=== PATIENT | male | born 1990 | race Two or more races ===

== ENCOUNTER 2019-12-03 13:30 | Inpatient (IN) | payer MEDICAID ==
[~2019-12-03] VITALS: Ht 167.6 cm; Wt 137.5 kg
[2019-12-03] MEDS ORDERED: QUEtiapine FUMARATE 100 MG TABLET PO ONE ×2 (14:30→15:15)
[2019-12-03 15:06] LABS: BASOPHILS % (AUTO) 0.4 % (0.0-2.0); EOSINOPHILS % (AUTO) 0.2 % (1.0-6.0); HEMATOCRIT 47.8 % (41-53); HEMOGLOBIN 16.4 g/dL (13.5-17.5); LYMPHOCYTES # (AUTO) 2.9 K/uL (1.0-4.8); LYMPHOCYTES % (AUTO) 14.6 % (22.0-44.0); MEAN CORPUSCULAR HEMOGLOBIN 29.3 pg (26.0-34.0); MEAN CORPUSCULAR HGB CONC 34.3 G/dL (31.0-37.0); MEAN CORPUSCULAR VOLUME 86 fL (80-100); MONOCYTES # (AUTO) 1.9 K/uL (0.1-1.0); MONOCYTES % (AUTO) 9.4 % (2.0-9.0); NEUTROPHILS % (AUTO) 75.4 % (40.0-70.0); PLATELET COUNT (AUTO) 352 K/uL (150-450); RED CELL DISTRIBUTION WIDTH 12.9 % (11.5-14.5)
[2019-12-03] MEDS ORDERED: LORazepam 1 MG TABLET PO ONE (15:15)
[2019-12-03 15:20] LABS: ANION GAP 7 mmol/L (8-16); CARBON DIOXIDE 29 mmol/L (22-29); CHLORIDE 104 mmol/L (98-107); CREATININE 1.14 mg/dL (0.60-1.30); GLOMERULAR FILTR. RATE CALC > 60 mL/min (>60); GLUCOSE,RANDOM 105 mg/dL (70-110); POTASSIUM 3.6 mmol/L (3.5-5.1); SODIUM SERUM 140 mmol/L (136-145); UREA NITROGEN, BLOOD 12 mg/dL (7-18)
[2019-12-03 15:26] LABS: ALANINE AMINOTRANSFERASE 58 U/L (12-78); ALBUMIN 4.6 g/dL (3.4-5.0); ALKALINE PHOSPHATASE 78 U/L (46-116); ASPARTATE AMINOTRANSFERASE 33 U/L (15-37); BILIRUBIN,TOTAL 0.9 mg/dL (0.1-1.0); TOTAL PROTEIN, SERUM 8.8 g/dL (6.4-8.2)
[2019-12-03] MEDS ORDERED: MAGNESIUM HYDROXIDE SUSPENSION 30 ML UDCUP PO PRN (15:30)
[2019-12-03] MEDS ORDERED: ACETAMINOPHEN 325 MG TABLET PO PRN (15:30)
[2019-12-03] MEDS ORDERED: GuaiFENesin/D-METHORPHAN [SUGAR-FREE] 200-20MG/10 ML SYRUP UDCUP PO PRN (15:30)
[2019-12-03] MEDS ORDERED: TUBERCULIN, PURIFIED PROTEIN DERIVATIVE 5 TU/0.1 ML SYRINGE ID ONE (15:30)
[2019-12-03] MEDS ORDERED: MAG HYDROX/AL HYDROX/SIMETH ES 30 ML SUSPENSION UDCUP PO PRN (15:30)
[2019-12-03] MEDS ORDERED: PROMETHAZINE HCL 25 MG TABLET PO PRN (15:30)
[2019-12-03] MEDS ORDERED: LOPERAMIDE HCL 2 MG CAPSULE PO PRN (15:30)
[2019-12-03] MEDS ORDERED: HydrOXYzine PAMOATE 50 MG CAPSULE PO PRN (15:30)
[2019-12-03 16:19] LABS: APPEARANCE,URINE CLOUDY (CLEAR); GLUCOSE, URINE (UA) NEGATIVE (NEGATIVE); KETONES,URINE >=80 mg/dL (NEGATIVE); LEUKOCYTE ESTERASE ,URINE NEGATIVE (NEGATIVE); NITRATE,URINE NEGATIVE (NEGATIVE); OCCULT BLOOD,URINE NEGATIVE (NEGATIVE); PH,URINE 5.5 (5.0-8.0); PROTEIN,URINE SEE CONFIRM (NEGATIVE); UROBILINOGEN,URINE 0.2 mg/dL (<=1.0)
[2019-12-03 16:20] LABS: BILIRUBIN,URINE PRELIM. POSITIVE (NEGATIVE)
[2019-12-03 16:24] LABS: SULFOSALICYLIC ACID,URINE 4+ (Negative)
[2019-12-03 16:25] LABS: RBC,URINE None Seen /HPF (0-2)
[2019-12-03 16:26] LABS: SQUAMOUS EPITHELIAL CELL,UR Few /LPF (None Seen)
[2019-12-03 16:27] LABS: AMPHET/METH SCREEN,URINE POSITIVE (NEGATIVE); BARBITURATE SCREEN, URINE NEGATIVE (NEGATIVE); BENZODIAZEPINES SCREEN,URINE NEGATIVE (NEGATIVE); CANNABINOID SCREEN,URINE POSITIVE (NEGATIVE); COCAINE SCREEN,URINE POSITIVE (NEGATIVE); METHADONE SCREEN, URINE NEGATIVE (NEGATIVE); OPIATE SCREEN,URINE NEGATIVE (NEGATIVE)
[2019-12-03 16:28] LABS: AMORPHOUS SEDIMENT,UR Few /LPF (None Seen); BACTERIA,URINE Moderate /HPF (None Seen); PHENCYCLIDINE SCREEN,URINE NEGATIVE (NEGATIVE)
[2019-12-03 16:29] LABS: COARSE GRANULAR CASTS,URINE 0-2 /LPF (None Seen)
[2019-12-03 16:30] LABS: MUCUS,URINE Moderate LPF (None Seen)
[2019-12-03] MEDS ORDERED: AZITHROMYCIN 250 MG TABLET PO ONE (17:15)
[2019-12-03] MEDS ORDERED: CefTRIAXone SODIUM 1 GM/VIAL IM ONE (17:15)
[2019-12-03 17:39] VITALS: BP 144/67
[2019-12-03] MEDS: THIAMINE HCL 100 MG TABLET PO SCH (17:59)
[2019-12-03] MEDS ORDERED: INFLUENZA VIRUS VACCINE QVS 2019-20 (3YR+)/PF 60 MCG/0.5 ML SYRINGE IM ONE (18:45)
[2019-12-03] MEDS ORDERED: LIDOCAINE/PF 1% 2 ML VIAL IM ONE (19:00)
[2019-12-03] MEDS: LORazepam 2 MG TABLET PO PRN (19:10)
[2019-12-03] MEDS ORDERED: QUEtiapine FUMARATE 200 MG TABLET PO SCH (21:00)
[2019-12-03] MEDS: ZOLPIDEM TARTRATE 10 MG TABLET PO PRN (22:06)
[2019-12-03] MEDS: QUEtiapine FUMARATE 100 MG TABLET PO PRN (22:09)
[2019-12-03] MEDS ORDERED: LORazepam 2 MG/ML VIAL ONE (23:27)
[2019-12-03] MEDS ORDERED: DiphenhydrAMINE HCL 50 MG/ML VIAL ONE (23:28)
[2019-12-03] MEDS ORDERED: HALOPERIDOL LACTATE 5 MG/ML VIAL ONE (23:28)
[2019-12-03] MEDS ORDERED: LORazepam 2 MG/ML VIAL IM ONE (23:30)
[2019-12-03] MEDS ORDERED: HALOPERIDOL LACTATE 5 MG/ML VIAL IM ONE (23:30)
[2019-12-03] MEDS ORDERED: DiphenhydrAMINE HCL 50 MG/ML VIAL IM ONE (23:30)
[2019-12-04] MEDS: THIAMINE HCL 100 MG TABLET PO SCH ×2 (09:37→16:34)
[2019-12-04] MEDS: MULTIVITAMINS WITH MINERALS, THERAPEUTIC TABLET PO SCH (09:37)
[2019-12-04] MEDS: FOLIC ACID 1 MG TABLET PO SCH (09:37)
[2019-12-04] MEDS: QUEtiapine FUMARATE 100 MG TABLET PO PRN (09:37)
[2019-12-04] MEDS: LORazepam 2 MG TABLET PO PRN (09:37)
[2019-12-04] MEDS: NALTREXONE HCL 50 MG TABLET PO SCH (09:40)
[2019-12-04] MEDS: CIPROFLOXACIN HCL 500 MG TABLET PO SCH ×2 (10:10→16:34)
[2019-12-04 16:30] VITALS: BP 135/83
[2019-12-04] MEDS ORDERED: OLANZapine 5 MG RAPDIS TABLET PO PRN (18:15)
[2019-12-04] MEDS: MIRTAZAPINE 15 MG TABLET PO SCH (20:32)
[2019-12-04] MEDS: ZOLPIDEM TARTRATE 10 MG TABLET PO PRN (20:58)
[2019-12-04] MEDS ORDERED: OLANZapine 5 MG RAPDIS TABLET PO SCH (21:00)
[2019-12-05] MEDS: MULTIVITAMINS WITH MINERALS, THERAPEUTIC TABLET PO SCH (09:08)
[2019-12-05] MEDS: THIAMINE HCL 100 MG TABLET PO SCH ×2 (09:08→16:09)
[2019-12-05] MEDS: FOLIC ACID 1 MG TABLET PO SCH (09:09)
[2019-12-05] MEDS: CIPROFLOXACIN HCL 500 MG TABLET PO SCH ×2 (09:09→16:09)
[2019-12-05] MEDS: NALTREXONE HCL 50 MG TABLET PO SCH (09:14)
[2019-12-05] MEDS: LORazepam 2 MG TABLET PO PRN (16:09)
[2019-12-05 16:22] VITALS: BP 148/89
[2019-12-05] MEDS: MIRTAZAPINE 15 MG TABLET PO SCH (20:08)
[2019-12-05] MEDS: OLANZapine 10 MG RAPDIS TABLET PO SCH (20:09)
[2019-12-05] MEDS: ZOLPIDEM TARTRATE 10 MG TABLET PO PRN (21:50)
[2019-12-06] MEDS: MULTIVITAMINS WITH MINERALS, THERAPEUTIC TABLET PO SCH (08:41)
[2019-12-06] MEDS: NALTREXONE HCL 50 MG TABLET PO SCH (08:41)
[2019-12-06] MEDS: FOLIC ACID 1 MG TABLET PO SCH (08:41)
[2019-12-06] MEDS: THIAMINE HCL 100 MG TABLET PO SCH ×2 (08:41→16:25)
[2019-12-06] MEDS: CIPROFLOXACIN HCL 500 MG TABLET PO SCH ×2 (08:41→16:25)
[2019-12-06 10:34] VITALS: BP 149/79
[2019-12-06 16:23] VITALS: BP 145/92
[2019-12-06] MEDS: OLANZapine 10 MG RAPDIS TABLET PO SCH (20:52)
[2019-12-06] MEDS ORDERED: MIRTAZAPINE 15 MG TABLET PO SCH (21:00)
[2019-12-07] MEDS: ZOLPIDEM TARTRATE 10 MG TABLET PO PRN (00:51)
[2019-12-07] MEDS: MULTIVITAMINS WITH MINERALS, THERAPEUTIC TABLET PO SCH (08:50)
[2019-12-07] MEDS: CIPROFLOXACIN HCL 500 MG TABLET PO SCH (08:50)
[2019-12-07] MEDS: NALTREXONE HCL 50 MG TABLET PO SCH (08:50)
[2019-12-07] MEDS: FOLIC ACID 1 MG TABLET PO SCH (08:50)
[2019-12-07] MEDS: THIAMINE HCL 100 MG TABLET PO SCH (08:51)
[2019-12-07] MEDS ORDERED: NALT50TA PO (13:38)
[2019-12-07] MEDS ORDERED: OLAN10TA22 PO (13:38)
[2019-12-07] MEDS ORDERED: MIRT15TA6 PO (13:38)
[2019-12-07] MEDS ORDERED: CIPR-278 PO (14:13)
== END 2019-12-07 15:10 | disposition home or self-care (01) | DRG 885 ==
LOC: EMS 13:34 → 3EI 16:39 → 3EC 22:10
PROVIDERS: ADMIT Psychiatry & Neurology Psychiatry; ATTEND Psychiatry & Neurology Psychiatry
DX: F25.0 Schizoaffective disorder, bipolar type (principal); R45.851 Suicidal ideations; F41.9 Anxiety disorder, unspecified; F12.90 Cannabis use, unspecified, uncomplicated; D72.829 Elevated white blood cell count, unspecified; F15.90 Other stimulant use, unspecified, uncomplicated; F17.210 Nicotine dependence, cigarettes, uncomplicated; I10 Essential (primary) hypertension; Z91.14 Patient's other noncompliance with medication regimen; Z81.8 Family history of other mental and behavioral disorders
CPT/HCPCS: 87040; 87086; 93005; G0480; J0696; J1200; J1630; J2060; J3490

== ENCOUNTER 2021-07-10 09:17 | Emergency (ER) | payer MEDICAID ==
[~2021-07-10] VITALS: Ht 167.6 cm; Wt 137.4 kg
[~2021-07-10 09:17] MED LIST: CIPR-278 PO; MIRT-92 PO; NALT50TA PO; OLAN10TA22 PO
[2021-07-10 09:26] VITALS: BP 147/89
[2021-07-10] MEDS ORDERED: HALOPERIDOL 5 MG TABLET PO ONE (09:45)
[2021-07-10] MEDS ORDERED: LORazepam 2 MG TABLET PO ONE (09:45)
[2021-07-10] MEDS ORDERED: QUEtiapine FUMARATE 100 MG TABLET PO ONE (10:45)
[2021-07-10 13:44] LABS: COVID AG,FIA SOURCE NASOPHARYNGEAL
== END 2021-07-10 16:40 | disposition short-term general hospital (02) ==
LOC: EMS 09:22
DX: F20.9 Schizophrenia, unspecified (principal); F31.9 Bipolar disorder, unspecified; F17.210 Nicotine dependence, cigarettes, uncomplicated; F12.90 Cannabis use, unspecified, uncomplicated; F19.90 Other psychoactive substance use, unspecified, uncomplicated; Z20.822 Contact with and (suspected) exposure to COVID-19
CPT/HCPCS: 99285

== ENCOUNTER 2021-07-10 20:18 | Inpatient (IN) | payer MEDICAID ==
[~2021-07-10] VITALS: Ht 167.6 cm; Wt 152.0 kg
[2021-07-10] MEDS ORDERED: LORazepam 2 MG TABLET PO PRN (21:30)
[2021-07-10] MEDS ORDERED: HALOPERIDOL 5 MG TABLET PO PRN (21:30)
[2021-07-10] MEDS ORDERED: ZOLPIDEM TARTRATE 10 MG TABLET PO PRN (21:30)
[2021-07-10] MEDS ORDERED: OLANZapine 5 MG TABLET PO ONE (22:00)
[2021-07-10] MEDS ORDERED: LORazepam 2 MG TABLET PO ONE (22:00)
[2021-07-10] MEDS ORDERED: QUEtiapine FUMARATE 100 MG TABLET PO ONE (22:30)
[2021-07-10 23:29] LABS: COVID AG,FIA SOURCE NASOPHARYNGEAL
[2021-07-11 01:48] VITALS: BP 110/70
[2021-07-11 01:50] VITALS: BP 110/70
[2021-07-11] MEDS ORDERED: INFLUENZA VIRUS VACCINE QVS 2021-22 (6MO+)/PF 60 MCG/0.5 ML SYRINGE IM. ONE (05:00)
[2021-07-11 08:24] VITALS: BP 123/70
[2021-07-11] MEDS: NALTREXONE HCL 50 MG TABLET PO SCH (14:32)
[2021-07-11] MEDS ORDERED: DOCUSATE SODIUM 100 MG CAPSULE PO PRN (15:45)
[2021-07-11] MEDS ORDERED: NICOTINE 14 MG/24 HOUR PATCH TD PRN (15:45)
[2021-07-11] MEDS ORDERED: IBUPROFEN 400 MG TABLET PO PRN (15:45)
[2021-07-11] MEDS ORDERED: ALBUTEROL SULFATE HFA 90 MCG/PUFF 8 GM INHALER IH PRN (15:45)
[2021-07-11] MEDS ORDERED: ACETAMINOPHEN 325 MG TABLET PO PRN (15:45)
[2021-07-11] MEDS ORDERED: GuaiFENesin/D-METHORPHAN [SUGAR-FREE] 200-20MG/10 ML SYRUP UDCUP PO PRN (15:45)
[2021-07-11] MEDS ORDERED: ONDANSETRON HCL 4 MG TABLET PO PRN (15:45)
[2021-07-11] MEDS ORDERED: PETROLATUM,WHITE 28 GM JELLY TP PRN (15:45)
[2021-07-11] MEDS ORDERED: MAG HYDROX/AL HYDROX/SIMETH ES 30 ML SUSPENSION UDCUP PO PRN (15:45)
[2021-07-11] MEDS ORDERED: CloNIDine HCL 0.1 MG TABLET PO PRN (15:45)
[2021-07-11] MEDS ORDERED: LOPERAMIDE HCL 2 MG CAPSULE PO PRN (15:45)
[2021-07-11] MEDS ORDERED: MAGNESIUM HYDROXIDE SUSPENSION 30 ML UDCUP PO PRN (15:45)
[2021-07-11 16:25] VITALS: BP 121/73
[2021-07-11] MEDS: MIRTAZAPINE 30 MG TABLET PO SCH ×2 (20:00→20:03)
[2021-07-11] MEDS ORDERED: OLANZapine 10 MG TABLET PO SCH (21:00)
[2021-07-12 06:38] VITALS: BP 139/76
[2021-07-12 08:36] VITALS: BP 142/79
[2021-07-12] MEDS: NALTREXONE HCL 50 MG TABLET PO SCH ×2 (09:00→09:03)
[2021-07-12] MEDS: QUEtiapine FUMARATE 200 MG TABLET PO SCH (12:26)
[2021-07-12] MEDS: CITALOPRAM HYDROBROMIDE 20 MG TABLET PO SCH (12:26)
[2021-07-12 16:22] VITALS: BP 131/77
[2021-07-12] MEDS: QUEtiapine FUMARATE 300 MG TABLET PO SCH ×2 (21:00→21:27)
[2021-07-13 06:08] VITALS: BP 130/72
[2021-07-13 08:32] VITALS: BP 133/76
[2021-07-13] MEDS: CITALOPRAM HYDROBROMIDE 20 MG TABLET PO SCH (08:56)
[2021-07-13] MEDS: NALTREXONE HCL 50 MG TABLET PO SCH (08:56)
[2021-07-13] MEDS: QUEtiapine FUMARATE 200 MG TABLET PO SCH (08:56)
[2021-07-13 16:22] VITALS: BP 139/81
[2021-07-13] MEDS: QUEtiapine FUMARATE 300 MG TABLET PO SCH (21:03)
[2021-07-14 07:45] LABS: BASOPHILS % (AUTO) 0.5 % (0.0-2.0); EOSINOPHILS % (AUTO) 1.9 % (1.0-6.0); HEMATOCRIT 46.3 % (41-53); HEMOGLOBIN 15.8 g/dL (13.5-17.5); LYMPHOCYTES # (AUTO) 3.3 K/uL (1.0-4.8); LYMPHOCYTES % (AUTO) 34.3 % (22.0-44.0); MEAN CORPUSCULAR HGB CONC 34.2 G/dL (31.0-37.0); MEAN CORPUSCULAR VOLUME 88 fL (80-100); MONOCYTES # (AUTO) 0.8 K/uL (0.1-1.0); MONOCYTES % (AUTO) 8.2 % (2.0-9.0); NEUTROPHILS # (AUTO) 5.4 K/uL (1.8-7.7); NEUTROPHILS % (AUTO) 55.1 % (40.0-70.0); PLATELET COUNT (AUTO) 325 K/uL (150-450); RED BLOOD CELL COUNT(AUTO) 5.28 MIL/uL (4.50-5.90)
[2021-07-14 07:58] LABS: HEMOGLOBIN A1C 5.3 % (3.8-5.6)
[2021-07-14 08:10] LABS: ALANINE AMINOTRANSFERASE 46 U/L (12-78); ALBUMIN 3.4 g/dL (3.4-5.0); ALKALINE PHOSPHATASE 70 U/L (46-116); ANION GAP 9 mmol/L (8-16); ASPARTATE AMINOTRANSFERASE 20 U/L (15-37); BILIRUBIN,TOTAL 0.3 mg/dL (0.1-1.0); CALCIUM, TOTAL 8.8 mg/dL (8.8-10.5); CARBON DIOXIDE 28 mmol/L (22-29); CHLORIDE 102 mmol/L (98-107); CHOL/HDL RATIO 6.2 (4.2-7.3); CHOLESTEROL 223 mg/dL (131-200); CREATININE 0.82 mg/dL (0.60-1.30); GLOMERULAR FILTR. RATE CALC > 60 mL/min (>60); GLUCOSE,RANDOM 95 mg/dL (70-110); HDL CHOLESTEROL 36 mg/dL (40-60); LDL CHOL (CALC.) 118 mg/dL (0-130); POTASSIUM 3.6 mmol/L (3.5-5.1); SODIUM SERUM 139 mmol/L (136-145); THYROID STIMULATING HORMONE 0.91 uIU/mL (0.36-3.74); TOTAL PROTEIN, SERUM 7.7 g/dL (6.4-8.2); TRIGLYCERIDES 343 mg/dL (15-150); UREA NITROGEN, BLOOD 10 mg/dL (7-18)
[2021-07-14 08:27] VITALS: BP 109/62
[2021-07-14] MEDS: NALTREXONE HCL 50 MG TABLET PO SCH (08:39)
[2021-07-14] MEDS: CITALOPRAM HYDROBROMIDE 20 MG TABLET PO SCH (08:39)
[2021-07-14] MEDS: QUEtiapine FUMARATE 200 MG TABLET PO SCH (08:39)
[2021-07-14] MEDS ORDERED: QUET300T2 PO (14:37)
[2021-07-14] MEDS ORDERED: CITA-144 PO (14:38)
[2021-07-14] MEDS ORDERED: QUET200T PO (14:38)
[2021-07-14 16:20] VITALS: BP 140/80
[2021-07-14] MEDS: QUEtiapine FUMARATE 300 MG TABLET PO SCH (20:43)
[2021-07-15 06:23] VITALS: BP 130/83
[2021-07-15 08:53] VITALS: BP 126/73
[2021-07-15] MEDS: NALTREXONE HCL 50 MG TABLET PO SCH (09:32)
[2021-07-15] MEDS: CITALOPRAM HYDROBROMIDE 20 MG TABLET PO SCH (09:32)
[2021-07-15] MEDS: QUEtiapine FUMARATE 200 MG TABLET PO SCH (09:32)
== END 2021-07-15 15:00 | disposition home or self-care (01) | DRG 750 ==
LOC: EMS 20:30 → B3A 21:35
PROVIDERS: ADMIT Psychiatry & Neurology Child & Adolescent Psychiatry; ATTEND Psychiatry & Neurology Child & Adolescent Psychiatry
DX: F20.0 Paranoid schizophrenia (principal); Z68.43 Body mass index [BMI] 50.0-59.9, adult; Z59.00 Homelessness unspecified; F17.210 Nicotine dependence, cigarettes, uncomplicated; E66.01 Morbid (severe) obesity due to excess calories; F15.90 Other stimulant use, unspecified, uncomplicated; Z20.822 Contact with and (suspected) exposure to COVID-19; F12.90 Cannabis use, unspecified, uncomplicated; R03.0 Elevated blood-pressure reading, without diagnosis of hypertension; Z91.19 Patient's noncompliance with other medical treatment and regimen; Z28.21 Immunization not carried out because of patient refusal; Z79.899 Other long term (current) drug therapy; Z71.6 Tobacco abuse counseling
CPT/HCPCS: 80053; 80061; 83036; 84439; 84443; 85025; 99285